=== PATIENT | male | born 1985 | race Caucasian/White ===

== ENCOUNTER 2021-07-27 17:35 | Emergency (ER) | payer SELFPAY ==
[~2021-07-27] VITALS: Ht 182.9 cm; Wt 200.0 kg
[2021-07-27] MEDS ORDERED: LEXAPRO10 MG PO (18:38)
[2021-07-27] MEDS ORDERED: FINASTERIDE1 MG (18:39)
[2021-07-27] MEDS ORDERED: VOLTAREN75 MG PO (19:36)
[2021-07-27] MEDS ORDERED: TYLENOL # 31 TA1 PO (19:36)
[2021-07-27 20:05] VITALS: BP 142/79
== END 2021-07-27 20:20 | disposition home or self-care (01) | DRG 563 ==
LOC: ED 17:35
DX: S43.101A Unspecified dislocation of right acromioclavicular joint, initial encounter (principal); E66.9 Obesity, unspecified; V86.56XA Driver of dirt bike or motor/cross bike injured in nontraffic accident, initial encounter; Y93.I9 Activity, other involving external motion